=== PATIENT | female | born 1970 | race Hispanic/Latino ===

== ENCOUNTER 2021-11-26 17:23 | Observation (INO) | payer OTHER ==
[~2021-11-26 17:23] MED LIST: Iopamidol-370 76% 500 ML 1 ML ONE
[2021-11-26 18:08] LABS: INR-International Normal Ratio 1.5; Prothrombin Time 18.3 sec (12.0-14.7)
[2021-11-26 18:09] LABS: PTT 40.7 sec (22.9-36.1)
[2021-11-26 18:18] LABS: ALT (SGPT) 29 U/L (8-55); AST (SGOT) 49 U/L (5-34); Albumin 3.4 g/dL (3.5-5.0); Alkaline Phosphatase 162 U/L (40-110); Anion Gap 13 mmol/L (10-20); BUN (Urea Nitrogen) 19 mg/dL (9.8-20.1); Bilirubin, Total 2.4 mg/dL (0.2-1.2); Calc. Creatinine Clearance 0 mL/min (70-130); Calcium 9.4 mg/dL (7.8-10.44); Carbon Dioxide 22 mmol/L (22-29); Chloride 108 mmol/L (98-107); Estimated GFR 105; Globulin 3.6 g/dL (2.4-3.5); Glucose 105 mg/dL (70-105); Lipase 80 U/L (8-78); Potassium 3.6 mmol/L (3.5-5.1); Sodium 139 mmol/L (136-145)
[2021-11-26 18:32] LABS: #Eosinphils 0.1 thou/uL (0.0-0.7); #Lymphocytes 0.5 thou/uL (1.20-3.40); #Monocytes 0.3 thou/uL (0.11-0.59); #Neutrophils 1.9 thou/uL (1.40-6.50); %Basophils 0.6 % (0.0-1.0); %Eosinophils 2.2 % (0.0-10.0); %Monocytes 10.3 % (0.0-10.0); %Neutrophils 69.9 % (42.0-75.0); Hemoglobin 11.7 g/dL (12.0-16.0); MDiff Complete? YES; Mean Corpuscular HGB CONC 32.5 g/dL (32.0-36.0); Mean Corpuscular Hemoglobin 31.1 pg (27.0-31.0); Mean Corpuscular Volume 95.6 fL (78.0-98.0); Mean Platelet Volume 8.8 fL (7.4-10.4); Platelet Count 53 thou/uL (130-400); Platelet Morphology Comment Appears Decreased; Polychromasia SLIGHT = 2-3 cells (100X) (0-2/hpf); RBC Distribution Width 15.4 % (11.5-14.5); Red Blood Cell (RBC) Count 3.76 mill/uL (4.20-5.40); White Blood Cell (WBC) Count 2.8 thou/uL (4.8-10.8)
[2021-11-26 18:38] LABS: CKMB 1.6 ng/mL (0-6.6)
[2021-11-26 20:17] LABS: Bilirubin Negative (Negative); Blood, Urine Negative (Negative); Clarity Clear (Clear); Glucose, Urine (Dipstick) Normal (Negative); Ketone, Urine 10 mg/dL (Negative); Leukocyte Negative Leu/uL (Negative); Nitrite Negative (Negative); Protein, Urine (Dipstick) Negative (Neg-Trace); Urobilinogen Normal mg/dL (Less than 2)
[2021-11-26] MEDS ORDERED: Bacitracin 1 PK ONE (20:35)
[2021-11-26] MEDS ORDERED: Ondansetron ODT 4 MG TAB PO PRN (23:29)
[2021-11-26] MEDS ORDERED: Acetaminophen 325 MG TAB PO PRN (23:29)
[2021-11-26] MEDS ORDERED: Ondansetron PF 4 MG/2 ML Vial IVP PRN (23:29)
[2021-11-26] MEDS ORDERED: Aspirin Chewable 81 MG TAB ONE (23:41)
[2021-11-26 23:49] LABS: Troponin I 0.063 ng/mL (< 0.028)
[2021-11-27] MEDS ORDERED: Electrolyte Replacement Protocol 1 EACH FS SCH (00:45)
[2021-11-27 00:55] VITALS: BMI 48.4
[2021-11-27] MEDS ORDERED: Furosemide 40 MG/4 ML VIAL SLOW IVP SCH ×2 (01:00→09:00)
[2021-11-27] MEDS ORDERED: traMADol HCl 50 MG TAB PO PRN (02:14)
[2021-11-27 02:51] LABS: #Lymphocytes 0.4 thou/uL (1.20-3.40); #Monocytes 0.3 thou/uL (0.11-0.59); #Neutrophils 1.4 thou/uL (1.40-6.50); %Basophils 0.6 % (0.0-1.0); %Monocytes 13.5 % (0.0-10.0); %Neutrophils 63.9 % (42.0-75.0); Hemoglobin 10.9 g/dL (12.0-16.0); Mean Corpuscular HGB CONC 32.2 g/dL (32.0-36.0); Mean Corpuscular Hemoglobin 30.9 pg (27.0-31.0); Mean Platelet Volume 8.7 fL (7.4-10.4); Platelet Count 46 thou/uL (130-400); RBC Distribution Width 15.5 % (11.5-14.5); Red Blood Cell (RBC) Count 3.52 mill/uL (4.20-5.40); White Blood Cell (WBC) Count 2.2 thou/uL (4.8-10.8)
[2021-11-27 03:07] LABS: Troponin I 0.067 ng/mL (< 0.028)
[2021-11-27 03:28] LABS: Anion Gap 12 mmol/L (10-20); BUN (Urea Nitrogen) 16 mg/dL (9.8-20.1); Calc. Creatinine Clearance 223 mL/min (70-130); Calcium 9.1 mg/dL (7.8-10.44); Carbon Dioxide 21 mmol/L (22-29); Chloride 109 mmol/L (98-107); Estimated GFR 110; Glucose 87 mg/dL (70-105); Potassium 3.7 mmol/L (3.5-5.1); Sodium 138 mmol/L (136-145)
[2021-11-27] MEDS ORDERED: Spironolactone 100 MG TAB PO SCH (08:00)
[2021-11-27 13:26] LABS: RBC Count-Automated (BF) 345 /cu.mm; WBC/Nucleated-Auto (BF) 178 /cu.mm
[2021-11-27 13:32] LABS: Fluid, Bilirubin Total 0.2 mg/dL (Not Available); Fluid, Glucose 88 mg/dL (Not Available); Fluid, LDH 36 U/L (Not Available); Fluid, Protein Less than 1.0 g/dL (Not Available)
[2021-11-27 13:45] LABS: BF Color Yellow; Body Fluid Source Ascites Body Fluid; Clarity Clear (Clear); Tube # EDTA
[2021-11-27 13:46] LABS: BF Segmented Neutrophils 3 %; Cell Count Non Hematic 71 %; Lymphocytes 26 %
[2021-11-27] MEDS ORDERED: metFORMIN 500 MG TAB PO SCH (17:00)
[2021-11-27 17:25] LABS: Iron 71 ug/dL (50-170); Iron Binding Capacity, Total 340 mcg/dL (265-497)
[2021-11-27 17:34] VITALS: BP 134/75; TEMP 98.2
[2021-11-27 17:46] LABS: HBSAB Concentration Less than 8.00 mIU/mL; HBSAg Index 0.33 S/CO (0-0.99); Hep B Surf AB Non-Reactive (NonReactive); Hep B Surf Ag Non-Reactive S/CO (NonReactive); Hep C IgG Ab Non-Reactive (NonReactive); Hep C Index 0.47 S/CO (0-0.79)
[2021-11-28] MEDS ORDERED: Multivit, Therapeutic 1 TAB PO SCH (09:00)
[2021-11-28] MEDS ORDERED: Furosemide 20 MG TAB PO SCH (09:00)
[2021-11-28] MEDS ORDERED: Spironolactone 25 MG TAB PO SCH ×2 (09:00)
[2021-11-28] MEDS ORDERED: Ascorbic Acid 500 mg Chewable Tablet PO SCH (09:00)
[2021-11-28] MEDS ORDERED: Zinc Sulfate 220 MG CAP PO SCH (09:00)
[2021-11-29 15:38] LABS: Alpha-1-Antitrypsin 144 mg/dL (101-187)
[2021-12-01 12:49] LABS: ANA Symphony (Qualitative) Equivocal: See Note (Negative); ANA Symphony (Quantitative) 0.7 Ratio (< 0.7 Negative); EliA Vaculitis New Method **** NEW METHOD ****; Mitochondrial Ab 2.3 U/mL (<4 Negative); dsDNA IgG Antibody 1.4 IU/mL (<10 Negative)
== END 2021-11-27 18:26 | disposition home or self-care (01) ==
LOC: ERS 17:23 → 2SW 22:50
PROVIDERS: ADMIT Hospitalist; ATTEND Hospitalist
PROC: 0W9G3ZX Drainage of Peritoneal Cavity, Percutaneous Approach, Diagnostic (ICD-10-PCS; principal; 2021-11-27)
DX: K75.81 Nonalcoholic steatohepatitis (NASH) (principal); K74.60 Unspecified cirrhosis of liver; R18.8 Other ascites; R77.8 Other specified abnormalities of plasma proteins; E80.6 Other disorders of bilirubin metabolism; K76.6 Portal hypertension; D61.818 Other pancytopenia; G89.29 Other chronic pain; M54.9 Dorsalgia, unspecified; Z87.19 Personal history of other diseases of the digestive system; Z79.84 Long term (current) use of oral hypoglycemic drugs; Z79.899 Other long term (current) drug therapy; Z20.822 Contact with and (suspected) exposure to COVID-19
CPT/HCPCS: 36415; 49083; 71045; 74177; 80048; 80053; 81003; 82042; 82103; 82105; 82247; 82390; 82553; 82945; 83516; 83540; 83550; 83615; 83690; 83880; 84157; 84484; 85025; 85060; 85610; 85730; 86015; 86038; 86225; 86706; 86708; 86803; 87070; 87205; 87340; 89051; 93005; 96374; 96376; G0378; J1940; Q9967; U0003; U0005

== ENCOUNTER 2022-03-21 06:06 | Day surgery (SDC) | payer OTHER ==
[2022-03-20 12:17] VITALS: BMI 43.3
[2022-03-21] MEDS ORDERED: Ketamine 50 MG/ML (10ML VIAL) ONE (07:33)
[2022-03-21] MEDS ORDERED: Lidocaine 1% PF 5 ML VIAL ONE (07:43)
[2022-03-21] MEDS ORDERED: PROPOFOL 200 MG/20 ML VIAL ONE (07:43)
== END 2022-03-21 09:35 | disposition home or self-care (01) ==
LOC: SDC 06:06
PROVIDERS: ATTEND Internal Medicine Gastroenterology
PROC: 0DJD8ZZ Inspection of Lower Intestinal Tract, Via Natural or Artificial Opening Endoscopic (ICD-10-PCS; principal; 2022-03-21)
PROC: 0DB78ZX Excision of Stomach, Pylorus, Via Natural or Artificial Opening Endoscopic, Diagnostic (ICD-10-PCS; principal; 2022-03-21)
DX: K57.31 Diverticulosis of large intestine without perforation or abscess with bleeding (principal); K31.9 Disease of stomach and duodenum, unspecified; I86.8 Varicose veins of other specified sites; K64.4 Residual hemorrhoidal skin tags; K29.71 Gastritis, unspecified, with bleeding; K74.60 Unspecified cirrhosis of liver; K76.6 Portal hypertension; K31.89 Other diseases of stomach and duodenum; I85.11 Secondary esophageal varices with bleeding; D64.9 Anemia, unspecified; R13.19 Other dysphagia; R19.4 Change in bowel habit; E66.9 Obesity, unspecified; Z68.41 Body mass index [BMI] 40.0-44.9, adult; Z87.891 Personal history of nicotine dependence; Z79.84 Long term (current) use of oral hypoglycemic drugs; Z79.899 Other long term (current) drug therapy
CPT/HCPCS: 88305; J2704

== ENCOUNTER 2022-05-07 03:25 | Emergency (ER) | payer OTHER | END 2022-05-07 05:00 | disposition home or self-care (01) | LOC: ERS 03:25 | DX: F41.1 Generalized anxiety disorder (principal); F43.0 Acute stress reaction | CPT/HCPCS: 71045; 93005 ==

== ENCOUNTER 2022-10-31 11:52 | Outpatient (CLI) | payer OTHER | END 2022-10-31 11:53 | disposition home or self-care (01) | LOC: ULT 11:52 | PROVIDERS: ATTEND Internal Medicine | DX: K74.69 Other cirrhosis of liver (principal); I85.01 Esophageal varices with bleeding; R74.8 Abnormal levels of other serum enzymes; R18.8 Other ascites; K76.6 Portal hypertension | CPT/HCPCS: 76705 ==

== ENCOUNTER 2024-03-22 15:46 | Emergency (ER) | payer OTHER ==
[~2024-03-22 15:46] MED LIST changes: -Iopamidol-370 76% 500 ML 1 ML ONE; +Iopamidol-370 76% 500 ML MDV (1 ML CHARGE) ONE
[2024-03-22 17:24] LABS: Bilirubin Negative (Negative); Blood, Urine Negative (Negative); CAUTI Indications for Culture Dysuria,urgency,freq; Clarity Clear (Clear); Glucose, Urine (Dipstick) Normal (Negative); Ketone, Urine Negative (Negative); Leukocyte Negative Leu/uL (Negative); Nitrite Negative (Negative); Protein, Urine (Dipstick) Negative (Neg-Trace); RBC/HPF 0-3 HPF (0-3); Specific Gravity, Urine 1.018 (1.002-1.036); Squamous Epithelial 0-3 HPF (0-3); WBC/HPF 0-3 HPF (0-3)
[2024-03-22 17:26] LABS: Bacteria/HPF 1+ HPF (None Seen)
[2024-03-22 17:27] LABS: #Basophils Less than 0.03 10x3/uL (0.0-0.2); %Basophils 0.5 % (0.0-1.0); %Eosinophils 3.4 % (0.0-10.0); %Lymphocytes 12.1 % (21.0-51.0); %Monocytes 18.4 % (0.0-10.0); %Neutrophils 65.6 % (42.0-75.0); Hemoglobin 9.2 g/dL (12.0-16.0); Mean Corpuscular HGB CONC 31.7 g/dL (32.0-36.0); Mean Corpuscular Hemoglobin 30.4 pg (27.0-31.0); Mean Corpuscular Volume 95.7 fL (78.0-98.0); Mean Platelet Volume 10.6 fL (7.4-10.4); Platelet Count 57 10x3/uL (130-400); RBC Distribution Width 16.3 % (11.5-14.5); Red Blood Cell (RBC) Count 3.03 mill/uL (4.20-5.40)
[2024-03-22 17:27] LABS: Urine Culture Reflex No No
[2024-03-22 17:31] LABS: INR-International Normal Ratio 1.9; PTT 41.6 sec (22.9-36.1); Prothrombin Time 22.1 sec (12.0-14.7)
[2024-03-22 17:38] LABS: ALT (SGPT) 25 U/L (8-55); AST (SGOT) 40 U/L (5-34); Albumin 2.5 g/dL (3.5-5.0); Alkaline Phosphatase 165 U/L (40-110); Anion Gap 12 mmol/L (10-20); BUN (Urea Nitrogen) 14 mg/dL (9.8-20.1); Bilirubin, Total 3.4 mg/dL (0.2-1.2); Calc. Creatinine Clearance 0 mL/min (70-130); Calcium 9.1 mg/dL (7.8-10.44); Carbon Dioxide 21 mmol/L (22-29); Chloride 109 mmol/L (98-107); Estimated GFR 107; Globulin 3.7 g/dL (2.4-3.5); Glucose 180 mg/dL (70-105); Lipase 41 U/L (8-78); Potassium 3.7 mmol/L (3.5-5.1); Protein, Total 6.2 g/dL (6.0-8.3); Sodium 138 mmol/L (136-145)
[2024-03-22 19:59] LABS: RBC Count-Automated (BF) 1301 /cu.mm; WBC/Nucleated-Auto (BF) 124 /cu.mm
[2024-03-22 20:16] LABS: BF Color Pink; Body Fluid Source Ascites Body Fluid; Clarity Hazy (Clear); Tube # 1
[2024-03-22 20:29] LABS: BF Segmented Neutrophils 3 %; Cell Count Non Hematic 80 %; Eosinophils 1 %; Lymphocytes 16 %
== END 2024-03-22 20:40 | disposition home or self-care (01) ==
LOC: ERS 15:46
DX: K74.60 Unspecified cirrhosis of liver (principal); R18.8 Other ascites
CPT/HCPCS: 36415; 49083; 74177; 80053; 81001; 82042; 82140; 82150; 82945; 83690; 84157; 85025; 85060; 85610; 85730; 87070; 87205; 89051